=== PATIENT | female | born 1950 | race Caucasian/White ===

== ENCOUNTER 2016-08-17 18:03 | Inpatient (IN) | payer MEDICARE ==
--- NOTE | ~2016-08-17 | HP ---
History And Physical [place] [address] [facility] [place]. [address] NAME: ROBBIE FELIZ : 52 STATUS : ADM IN [facility]#: [id number] AGE: 66 ADM/REG DATE : 08/17/16 MR#: [id number] REPORT SERV DATE: 08/18/16 DICTATED BY: RIA HANSON DATE: 08/17/16 REPORT STATUS : Draft TRANSCRIBED BY: MODL DATE: 08/17/16 DATE OF ADMISSION: 08/17/2016 TIME: 1830 hours. Seen in ER bed 8. HISTORY OF PRESENT ILLNESS: The patient is a 66-year-old white diabetic female who underwent liver biopsy earlier today at [facility], [place]. Apparently, she was felt to have a subcapsular hematoma develop. She was hypotensive and received some IV fluids there, and when her pressure did not improve, she was sent to [place]. The patient told me she has 3 to 4 core biopsies done. Imaging here reveals evidence of possible hematoma to liver, some free blood into the gutter. A surgeon has been called. The patient has a history of cyst. PAST MEDICAL HISTORY: Significant for pyr-knnzygx-fybgtfcoz diabetes, history of cholecystectomy, appendectomy, past C-sections, shoulder surgery. Chronic kidney disease for which she is followed by Nephrology, Dr. Barrios, also history of depression in the past, type 2 diabetes as mentioned. No history of stroke, seizure, or convulsion. She does have a history of hypothyroidism. ALLERGIES: TO PENICILLIN, CODEINE, BREAK OUT IN A RASH. REVIEW OF SYSTEMS: GI: Noted. : Negative. CARDIAC: Negative according to the patient. MUSCULOSKELETAL: Shoulder surgery. ENDOCRINE: Hypothyroidism, diabetes. ONCOLOGY: Negative. All other systems reviewed negative. No history of seizures or convulsions. SOCIAL HISTORY: Quit smoking 17 months ago. Smoked [id number]-vxno prior. MEDICATION: List as noted. She takes the following: Amitriptyline 50 one tablet p.o. daily, atorvastatin 40 mg one tablet daily, Co Q10 one tablet daily, fish oil 360 200 mg two capsules by mouth daily, glipizide 5 mg one tablet p.o. twice a day, Januvia 100 mg tablets p.o. daily, lisinopril 10 mg p.o. daily, multivitamin one daily, Singulair 10, Ursodiol for biliary cirrhosis 300 mg p.o. daily, aspirin 81 mg p.o. daily, B complex one tablet p.o. daily, escitalopram 5 mg p.o. daily, Neurontin 600 mg p.o. daily, hydrochlorothiazide 25 mg p.o. daily, levothyroxine 150 mcg p.o. daily, magnesium tablet one daily, omeprazole capsule daily, Uloric 40 mg p.o. daily, vitamin C 1000 mg tablet, Zyrtec 10 mg p.o. daily. PHYSICAL EXAMINATION: VITAL SIGNS: Currently blood pressure is 75/60, pulse is 83 to 90. History And Physical [address] [address] NAME: ROBBIE FELIZ : 52 STATUS : ADM IN [facility]#: [id number] AGE: 66 ADM/REG DATE : 08/17/16 MR#: [id number] REPORT SERV DATE: 08/18/16 DICTATED BY: RIA HANSON DATE: 08/17/16 REPORT STATUS : Draft TRANSCRIBED BY: EMERSON DATE: 08/17/16 GENERAL: The patient is a pale-appearing female, appearing her stated age. HEENT: Head is normocephalic. Sclerae and conjunctivae are clear. Oral mucosa appear dry. NECK: Large. Thyroid not palpable. CHEST: Clear to auscultation and percussion. No wheezing or rhonchi. CARDIAC: S1 and S2. No murmurs or gallops. ABDOMEN: Tender to palpation especially, subxiphoid into the right. Bowel sounds present, but diminished. EXTREMITIES: No cyanosis, edema. No clubbing. Pulses palpable. NEUROLOGIC: Cranial nerves 2 through 12 are intact. Deep tendon reflexes normal. The patient does have a history of peripheral neuropathy of the feet. EKG may show an early right bundle. LABORATORY DATA: Shows an H and H of 9.5 and 29.7, white count 11,000, platelet 305,000. Sodium 144, potassium 5.6, chloride 113, CO2 of 24, BUN 47, creatinine 2.73 which is up from 1.85 previous measurement, glucose 168. CT scan as noted. IMPRESSION: Probable hepatic hematoma being typed and crossed. We will get access, surgeon to see and interventional Radiology is aware. ELANA/EMERSON Ria Hanson M.D. / [id number] CC: Ria Hanson M.D. [facility]
--- NOTE | ~2016-08-17 | CN ---
Consultation Report [address] [place]. [address] NAME: ROBBIE FELIZ : 52 STATUS : ADM IN PAT#: [id number] AGE: 66 ADM/REG DATE : 08/17/16 MR#: [id number] REPORT SERV DATE: 08/18/16 DICTATED BY: RIA GALDAMEZ III DATE: 08/17/16 REPORT STATUS : Draft TRANSCRIBED BY: MODRamona DATE: 08/17/16 DATE OF CONSULTATION: 08/17/2016 REASON FOR CONSULT: 1. Hepatic hematoma with hypotension. 2. Recommendation regarding surgical management. HISTORY OF PRESENT ILLNESS: I am asked to see this 66-year-old female emergently for the above reasons. The patient underwent a CT-directed liver biopsy earlier today at an outside institution. Following which, she developed progressive abdominal pain and weakness. She presented to the emergency room and was found to have on CT scan a large hepatic hematoma. The patient has been somewhat hypertensive, but otherwise stable since admission. She complains of right upper quadrant pain and right shoulder pain. PAST MEDICAL HISTORY: 1. History of diabetes mellitus. 2. History of apparent chronic renal insufficiency. 3. History of hypothyroidism. 4. Obesity. ALLERGIES: CODEINE, AMOXICILLIN, AND PENICILLIN. MEDICATIONS: Elavil, Lipitor, vitamins, Glucotrol, Januvia, Prinivil, Singulair, Actigall, Zyrtec, aspirin, Lexapro, hydrochlorothiazide, levothyroxine, magnesium oxide, Prilosec, Uloric, vitamin C. REVIEW OF SYSTEMS: The patient has apparent history of cirrhosis or liver disease. She has a history of hypertension and anxiety. SOCIAL HISTORY: The patient is . PHYSICAL EXAMINATION: GENERAL: Reveals an obese female, in no acute distress. She is alert and oriented x3. VITAL SIGNS: Blood pressure 97/42, temperature 36.6, pulse 82. HEENT: Unremarkable. NEUROLOGIC: Cranial nerves II through XII are normal. LUNGS: Clear. CARDIAC: Normal. ABDOMEN: Obese and soft with some right upper quadrant tenderness with no guarding. The remainder of the abdomen is soft and nontender. Consultation Report [address] [place]. [address] NAME: ROBBIE FELIZ : 52 STATUS : ADM IN PAT#: [id number] AGE: 66 ADM/REG DATE : 08/17/16 MR#: [id number] REPORT SERV DATE: 08/18/16 DICTATED BY: RIA GALDAMEZ III DATE: 08/17/16 REPORT STATUS : Draft TRANSCRIBED BY: EMERSON DATE: 08/17/16 LABORATORY DATA: Hematocrit is 24.5, it has decreased from 29.7 since 4 o'clock this afternoon, but the patient has had 2 units of IV fluids in transfusion. Her INR is normal at 1.1. Her platelet count is normal. Electrolytes are remarkable for creatinine of 2.73. Approximately two years ago, her creatinine was elevated at 1.85. Glucose is 168. Albumin is 3.6. Liver enzymes are remarkable for an alkaline phosphatase of 221. CT scan of the abdomen and pelvis, which I reviewed shows a 3 cm subcapsular hepatic hematoma. ASSESSMENT: A 66-year-old female with: 1. Subcapsular right-sided hepatic hematoma after a liver biopsy. 2. Hypotension secondary to subcapsular right-sided hepatic hematoma. 3. Obesity. 4. Hypertension. 5. Hypothyroidism. 6. Chronic renal insufficiency. 7. Diabetes mellitus. PLAN: The patient is stable at this time and has responded to IV fluids. She has been admitted to Intensive Care Unit and will receive 2 units of blood in transfusion. I have recommended serial hematocrits and close monitoring. Generally, I have explained to the patient that this type of bleeding will stop spontaneously without surgical intervention. However, if she has evidence for continued bleeding, then surgical intervention will be required. I have discussed this with the patient and her family. The fact that this is a serious situation with life-threatening potential has been explained. The patient and family had questions, which were answered. They understand and agreed with this plan. We will follow the patient with you. RHNeelam/EMERSON Ria Galdamez III, M.D. / [id number] CC: Carline Camara CHELSEY
--- NOTE | ~2016-08-17 | DS ---
Discharge Summary [facility] [address] [place]. [address] NAME: ROBBIE FELIZ : 52 STATUS : DIS IN PAT#: [id number] AGE: 66 ADM/REG DATE : 08/17/16 MR#: [id number] REPORT SERV DATE: 08/24/16 DICTATED BY: HSAD BURT DATE: 08/23/16 REPORT STATUS : Draft TRANSCRIBED BY: MODL DATE: 08/23/16 ADMISSION DATE: 08/17/2016 DISCHARGE DATE: 08/23/2016 DISPOSITION: Discharged to home. CONDITION ON DISCHARGE: Stable. ADVISE ON DISCHARGE: To follow up with Nephrology, Dr. Barrios within the next three to four weeks as scheduled and also follow up with her GI specialist for biliary cirrhosis as scheduled within the next few weeks. DISCHARGE DIAGNOSES: 1. Right upper quadrant pain and hematoma after the patient had liver biopsy done. So, this is likely liver biopsy related, but this is resolving at this time, and pain has resolved and hemoglobin and hematocrit have remained stable in this patient. Hence, she is being discharged. 2. 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 3. Chronic kidney disease with baseline creatinine 1.8 to 2.2. So, the patient has chronic kidney disease, stage IV and this is stable. 4. Xnq-ugukofp-bcoxepvlt diabetes mellitus with uncontrolled blood glucose levels and noncompliance with diet with A1c 10.5 range. 5. Diabetic neuropathy. 6. Dyslipidemia. 7. Hypothyroidism. 8. History of proteinuria. 9. History of asthma and history of gout, which are all stable at this time. BRIEF HOSPITAL COURSE: The patient is a 66-year-old white female patient who was admitted with signs and symptoms as outlined in history and physical exam. For a brief period, the patient was in the ICU because she was hypotensive and had a large hematoma in the right upper quadrant and significant pain in the right upper quadrant postprocedure. The patient had undergone a liver biopsy as the patient has suspected biliary cirrhosis of the liver. After she was given blood transfusion and watched in the ICU and stabilized, the patient was sent to the floor. When I took over care of the patient on the regular medical floor, the patient continued to have mild right upper quadrant pain. The patient's numbers had already stabilized and she had no more bleeding with a normal hemoglobin and hematocrit. The patient's symptoms were controlled with medications and after she was given supportive care, her symptoms significantly improved. On the day of discharge, the patient continues to be slightly anxious and nauseated and requests Ativan. So, the patient will be given 0.5 mg of Ativan right now and if this calms her nausea down, she will be sent home as she is requesting. Discharge Summary [place] [address] [place]. [address] NAME: ROBBIE FELIZ : 52 STATUS : DIS IN PAT#: [id number] AGE: 66 ADM/REG DATE : 08/17/16 MR#: [id number] REPORT SERV DATE: 08/24/16 DICTATED BY: SHAD BURT DATE: 08/23/16 REPORT STATUS : Draft TRANSCRIBED BY: EMERSON DATE: 08/23/16 The patient otherwise is stable and is advised to follow up with physicians as mentioned above. There have been the following changes that have been made to her medications. Given her kidney function at this time, we have stopped her lisinopril temporarily, HCTZ temporarily, Januvia temporarily. Instead I have added Norvasc 5 mg for blood pressure control. We will continue Coreg that has been suggested and advised while she has been in the hospital at 6.25 mg p.o. b.i.d., Colace 100 mg p.o. b.i.d., folic acid 1 mg p.o. daily. For the right upper quadrant pain, I have given her a prescription for tramadol, 50 mg p.o. b.i.d. p.r.n. and Compazine 10 mg p.o. t.i.d. p.r.n. for nausea which she requests. The patient will follow up with Dr. Barrios and it is up to her materials scientist to restart her lisinopril given the history of significant proteinuria. However, we may want to wait for her creatinine to stabilize and her GFR to stabilize also at this time. Otherwise, her rest of the medications will definitely be renewed and the patient will be advised to continue the following medications and this will include Elavil 50 mg p.o. at bedtime, aspirin 81 mg once a day, Lipitor once a day, Zyrtec, Lexapro, Uloric 40 mg once a day, Neurontin, Glucotrol, levothyroxine, Singulair 10 mg once a day, Prilosec once a day, Actigall. The patient will also hold her Januvia as mentioned above given her renal function. The patient has also been advised to follow up with PCP within the next one to two weeks to regulate her diabetes better. She may need insulin within the next short period for better control of her diabetes, if the PCP decides that the glipizide alone is not continuing to control her diabetes at this time. I have the following most recent lab reports on this patient. Her CBC on 08/23/2016 shows WBC of 9.2, hemoglobin 9.3, hematocrit 28.3 which are stable, platelet count of 333. Renal function profile shows a sodium 142, potassium 3.4 which is being corrected, chloride 107, BUN is 58, and creatinine is 2.21. So, it looks like she is pretty much back at her baseline creatinine. Her creatinine however, was high and it was as high as 3.07 and climbed up to almost 4.57 on 08/19/2016, but the 4.57 creatinine nicely came down to 2.21 which is her baseline on 08/23/2016. Also her hemoglobin and hematocrit upon admission was as low as 7.7 on 08/19/2016 and this improved after 2 units of blood transfusion and has stabilized at 9.3. The patient also had a CT scan of the abdomen and pelvis done at this time, and this showed that the patient had the following findings. Actually her CT scan was repeated on 08/17/2016 and 08/18/2016 and this shows that the patient had a subtle subcapsular hematoma, which has stabilized and no GI or obstruction, mild cardiomegaly, and slight increase in bibasilar atelectasis compared to the CT scan that was done on 08/17/2016 that did show a subcapsular hematoma on the right side. Hence, the patient is being sent home after being stabilized with advise as above and I have spent about 40 minutes in coordinating discharge care of this patient including ykhx-xf-fzrc encounter and summarizing this discharge. Discharge Summary [facility] [address] [place] [address] NAME: ROBBIE FELIZ : 52 STATUS : DIS IN PAT#: [id number] AGE: 66 ADM/REG DATE : 08/17/16 MR#: [id number] REPORT SERV DATE: 08/24/16 DICTATED BY: SHAD BURT DATE: 08/23/16 REPORT STATUS : Draft TRANSCRIBED BY: MODL DATE: 08/23/16 RRA/EMERSON Shad Burt M.D. / [id number] CC: Shad Burt M.D. [facility]
--- NOTE | ~2016-08-17 | CN ---
Consultation Report [facility] [address] [place]. [address] NAME: ROBBIE FELIZ : 52 STATUS : ADM IN PAT#: [id number] AGE: 66 ADM/REG DATE : 08/17/16 MR#: [id number] REPORT SERV DATE: 08/19/16 DICTATED BY: JAXSON PARRY DATE: 08/18/16 REPORT STATUS : Draft TRANSCRIBED BY: MODL DATE: 08/18/16 DATE OF CONSULTATION: 08/18/2016 REASON FOR CONSULT: Chronic kidney disease with acute kidney injury. HISTORY OF PRESENT ILLNESS: Ms. Feliz is a very pleasant 66-year-old white female, followed in the office of [facility] by Dr. Magaly Barrios. Reviewing available records shows that her baseline creatinine is 1.8 to 2.2. In June 2016, her creatinine was 2.2. At which time, her urine protein-creatinine ratio was 2.32. She is chronically maintained on ROCK inhibitor as an outpatient. She is postop day one outpatient renal biopsy for primary biliary cirrhosis. She developed bleed after the procedure and was sent by EMS to the ER here at [facility] yesterday, where she was found to be profoundly hypotensive. Initial systolic blood pressures were in the 70s. Creatinine was 2.7 on presentation. She was watched overnight in the CCU. Today, her creatinine is 3.1 with potassium 5.5, bicarbonate 19. She is on 1 mcg of Levophed and received 1 unit of packed red blood cells since admission. PAST MEDICAL HISTORY: 1. Chronic kidney disease, baseline creatinine 1.8-2.2. 2. Xrq-pesubod-qfncxcsqy diabetes mellitus with A1c 10.5% and neuropathy. 3. Hyperlipidemia. 4. Hypothyroid. 5. Proteinuria, on ROCK inhibitor 2.32 g. 6. Asthma. 7. Gout. 8. Primary biliary cirrhosis. MEDICATIONS ON ADMISSION: Elavil 50 mg q.h.s., vitamin C, aspirin, Lipitor, Super B Complex, Zyrtec, CoQ10, Trulicity, Lexapro, Uloric, Neurontin, Glucotrol, hydrochlorothiazide 25 mg daily, levothyroxine, lisinopril 10 mg b.i.d., Singulair 10 mg daily, fish oil, Prilosec, Januvia, and Actigall. FAMILY HISTORY: No ESRD. 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 Lives in [place] with supportive family. and nonsmoker. REVIEW OF SYSTEMS: Significant for events prompting admission after liver biopsy yesterday. She takes Aleve once or twice a week. PHYSICAL EXAMINATION: VITAL SIGNS: Temperature 98.4, pulse 93, respirations 19, blood pressure 104/59, and 97% saturation on 4 L per nasal cannula, 1339 mL of intake with 220 mL of output. GENERAL: She is a very pleasant white female, awake, alert, oriented, and cooperative with Consultation Report [address] [place]. [address] NAME: ROBBIE FELIZ : 52 STATUS : ADM IN [facility]#: [id number] AGE: 66 ADM/REG DATE : 08/17/16 MR#: [id number] REPORT SERV DATE: 08/19/16 DICTATED BY: JAXSON PARRY DATE: 08/18/16 REPORT STATUS : Draft TRANSCRIBED BY: EMERSON DATE: 08/18/16 the exam. She has bilateral rhonchi without dyspnea or tachypnea. CARDIAC: Heart rate, regular rate and rhythm. No murmur, rub, or gallop. ABDOMEN: Obese, soft, nondistended, tender to palpation in the right upper quadrant without rebound, guarding, or peritoneal signs. EXTREMITIES: With 1+ pitting edema at the ankles. : Deferred. Joseph catheter has been removed. She has a right upper arm PICC line. SKIN: Shows no rash. Mood and affect are appropriate. MUSCULOSKELETAL: Shows no active tenosynovitis or gout. NEURO: Grossly nonfocal. HEENT: Sclerae without icterus. Conjunctivae not injected. Oropharynx is clear. Mucous membranes are dry without JVD. IMAGING: CT scan without contrast confirmed a subcapsular hematoma. LABORATORY DATA: Sodium 142, potassium 5.5, bicarbonate 19, anion gap 10, BUN 50, creatinine 3.1, GFR 15 mL/minute, calcium 7.4, magnesium 1.9, phosphorus 5.3, albumin 2.6. White count 20.6 thousand, hemoglobin 9.3, platelets 263,000. ASSESSMENT AND PLAN: Ms. Feliz has chronic kidney disease with acute kidney injury, leukocytosis, non-anion gap metabolic acidosis, hyperkalemia, hypoalbuminemia, hypotension, postop day one liver biopsy with subcapsular hematoma. Her other medical history is as outlined above. I suspect she has developed acute kidney injury related to acute tubular necrosis from renal hypoperfusion due to low blood pressure with acute blood loss anemia after liver biopsy yesterday. Hold ROCK inhibitor. Dose albumin. Gently diurese and reduce the IV fluid intake rate. Watch labs. Supportive care. Family updated. Hopefully, dialysis can be avoided at this time. We will follow closely with you. Appreciate consult. NC/MODL Jaxson Parry M.D. / [id number] CC: Carline Camara M.D.
[2016-08-17 16:27] LABS: BASOPHILS 0.4 %; BASOPHILS ABSOLUTE 0.04 10/3/uL (0.0-0.16); EOSINOPHILS 0.5 %; EOSINOPHILS ABSOLUTE 0.06 10/3/uL (0.0-0.53); ER CBC TAT 0 Hrs 07 Mins; IMMATURE GRANULOCYTES 0.2 %; IMMATURE GRANULOCYTES ABSOLUTE 0.02 10/3/uL (0.0-0.11); LYMPHOCYTES 19.4 %; LYMPHOCYTES ABSOLUTE 2.12 10/3/uL (0.67-4.30); MEAN CORPUSCULAR HEMOGLOB 29.1 pg (26.0-34.0); MEAN CORPUSCULAR VOLUME 91.1 fL (80-100); MEAN PLATELET VOLUME 10.4 fL (9.2-13.0); MONOCYTES 6.4 %; NEUTROPHILS 73.1 %; NEUTROPHILS ABSOLUTE 8.01 10/3/uL (2.02-8.40); PLATELET COUNT 305 10/3/uL (150-400); RBC DISTRIBUTION WIDTH 13.8 % (12.0-16.0)
[2016-08-17 16:28] LABS: HEMATOCRIT 29.7 % (36.0-48.0); HEMOGLOBIN 9.5 g/dL (12.0-16.0); MANUAL DIFF NO %; RED CELL COUNT 3.26 10/6/uL (4.0-5.6)
[2016-08-17 16:34] LABS: INTERNATIONAL NORMAL RATI 1.1 UNITS (-); PARTIAL THROMBO TIME 25.8 SEC (22.5-37.2); PROTIME (NOT ORD) 13.7 SEC (12.0-14.5)
[2016-08-17 16:39] LABS: A/G RATIO 0.7 (0.7-1.9); ALBUMIN 2.6 G/DL (3.5-5.0); ALKALINE PHOSPHATASE 221 U/L (45-117); BUN (BLOOD UREA NITROGEN) 47 MG/DL (6-23); CALCIUM, SERUM 7.6 MG/DL (8.5-10.4); CHLORIDE, SERUM 113 MMOL/L (96-112); CO2 (CARBON DIOXIDE) 24 MMOL/L (24-34); CREATININE 2.73 MG/DL (0.55-1.02); GFR AFRICAN AMERICAN 20 ML/MIN (>=60); GFR NON AFRICAN AMERICAN 18 ML/MIN (>=60); GLUCOSE, SERUM 168 MG/DL (60-99); POTASSIUM, SERUM 5.6 MMOL/L (3.5-5.3); SGOT(AST) 46 U/L (5-40); SGPT(ALT) 38 U/L (5-65); SODIUM, SERUM 144 MMOL/L (135-148); TOTAL BILIRUBIN 0.5 MG/DL (0-1.2); TOTAL PROTEIN 6.6 G/DL (6.0-8.5)
[2016-08-17] MEDS ORDERED: AMIT50 PO (18:58)
[2016-08-17] MEDS ORDERED: FISH OIL1200 MG PO (18:58)
[2016-08-17] MEDS ORDERED: CO Q-10100 MG PO (18:58)
[2016-08-17] MEDS ORDERED: LIPITOR40 PO (18:58)
[2016-08-17] MEDS ORDERED: GLUCOTROL5 PO (18:59)
[2016-08-17] MEDS ORDERED: JANUVIA50 PO (18:59)
[2016-08-17] MEDS ORDERED: PRIN10 PO (18:59)
[2016-08-17] MEDS ORDERED: SINGULAIR1 PO (19:00)
[2016-08-17] MEDS ORDERED: ACT300 PO (19:00)
[2016-08-17] MEDS ORDERED: ASAB PO (19:00)
[2016-08-17] MEDS ORDERED: MULTIVITAMI1 PO (19:00)
[2016-08-17] MEDS ORDERED: ZYRTEC ALLGY10 MG PO (19:00)
[2016-08-17] MEDS ORDERED: LEXAPRO5 MG PO (19:01)
[2016-08-17] MEDS ORDERED: SUPER B COMP PO (19:01)
[2016-08-17] MEDS ORDERED: HYDROCHLOROT25 MG PO (19:01)
[2016-08-17] MEDS ORDERED: NEUR600 PO (19:01)
[2016-08-17] MEDS ORDERED: PRILOSEC40 MG PO (19:02)
[2016-08-17] MEDS ORDERED: LEVOTHYROXIN150 MCG PO (19:02)
[2016-08-17] MEDS ORDERED: MAGOX4 PO (19:02)
[2016-08-17] MEDS ORDERED: ULORIC40 MG PO (19:02)
[2016-08-17] MEDS ORDERED: TRULICITY0.75 MG/0. SQ (19:03)
[2016-08-17] MEDS ORDERED: VITC500 PO (19:03)
[2016-08-17 20:10] LABS: BASOPHILS 0.3 %; BASOPHILS ABSOLUTE 0.03 10/3/uL (0.0-0.16); EOSINOPHILS 0.5 %; EOSINOPHILS ABSOLUTE 0.05 10/3/uL (0.0-0.53); ER CBC TAT 0 Hrs 07 Mins; HEMOGLOBIN 7.6 g/dL (12.0-16.0); IMMATURE GRANULOCYTES 0.2 %; IMMATURE GRANULOCYTES ABSOLUTE 0.02 10/3/uL (0.0-0.11); LYMPHOCYTES 21.1 %; MEAN CORPUSCULAR HEMOGLOB 27.9 pg (26.0-34.0); MEAN CORPUSCULAR VOLUME 90.1 fL (80-100); MEAN PLATELET VOLUME 9.7 fL (9.2-13.0); MONOCYTES 8.3 %; MONOCYTES ABSOLUTE 0.82 10/3/uL (0.21-1.20); NEUTROPHILS 69.6 %; NEUTROPHILS ABSOLUTE 6.91 10/3/uL (2.02-8.40); PLATELET COUNT 262 10/3/uL (150-400); RBC DISTRIBUTION WIDTH 14.3 % (12.0-16.0); RED CELL COUNT 2.72 10/6/uL (4.0-5.6); WHITE BLOOD CELLS 9.9 10/3/uL (4.5-10.5)
[2016-08-17 20:11] LABS: HEMATOCRIT 24.5 % (36.0-48.0); MANUAL DIFF NO %
[2016-08-17 21:51] LABS: BE (BASE EXCESS) -10.1 MEQ/L (0 +/- 2.5); CARBOXYHEMOGLOBIN 0.1 % (0-3); DEVICE NC; HCO3 (ACTUAL BICARBONATE) 16.3 MEQ/L (23-27); HEMOBLOGIN CONTENT 9.2 G/DL (12-16); INSTRUMENT SERIAL # 35151; METHEMOGLOBIN 0.5 % (0-3); O2 CONTENT 12.5 VOL% (18-24); OPERATOR ID 13861; PCO2 (CO2 TENSION) 38 MMHG (35-45); PO2 (O2 TENSION) 92 MMHG (79-93); SAMPLE Arterial; pH 7.25 (7.37-7.43)
[2016-08-17 23:02] LABS: BUN (BLOOD UREA NITROGEN) 46 MG/DL (6-23); CHLORIDE, SERUM 114 MMOL/L (96-112); GFR AFRICAN AMERICAN 20 ML/MIN (>=60); GFR NON AFRICAN AMERICAN 17 ML/MIN (>=60); GLUCOSE, SERUM 148 MG/DL (60-99); POTASSIUM, SERUM 5.7 MMOL/L (3.5-5.3); SODIUM, SERUM 143 MMOL/L (135-148)
[2016-08-17 23:03] LABS: CALCIUM, SERUM 7.2 MG/DL (8.5-10.4); CO2 (CARBON DIOXIDE) 19 MMOL/L (24-34)
[2016-08-18 02:18] LABS: BASOPHILS 0.3 %; BASOPHILS ABSOLUTE 0.05 10/3/uL (0.0-0.16); EOSINOPHILS 0.4 %; EOSINOPHILS ABSOLUTE 0.07 10/3/uL (0.0-0.53); HEMATOCRIT 31.5 % (36.0-48.0); IMMATURE GRANULOCYTES 0.3 %; IMMATURE GRANULOCYTES ABSOLUTE 0.06 10/3/uL (0.0-0.11); LYMPHOCYTES 16.3 %; MEAN CORPUS HGB CONC 31.7 g/dL (32.0-36.0); MEAN CORPUSCULAR HEMOGLOB 29.4 pg (26.0-34.0); MEAN CORPUSCULAR VOLUME 92.6 fL (80-100); MEAN PLATELET VOLUME 9.7 fL (9.2-13.0); MONOCYTES 7.9 %; MONOCYTES ABSOLUTE 1.51 10/3/uL (0.21-1.20); NEUTROPHILS 74.8 %; NEUTROPHILS ABSOLUTE 14.27 10/3/uL (2.02-8.40); PLATELET COUNT 309 10/3/uL (150-400); RBC DISTRIBUTION WIDTH 14.2 % (12.0-16.0); WHITE BLOOD CELLS 19.1 10/3/uL (4.5-10.5)
[2016-08-18 02:19] LABS: MANUAL DIFF NO %
[2016-08-18 04:46] LABS: BUN (BLOOD UREA NITROGEN) 50 MG/DL (6-23); CALCIUM, SERUM 7.4 MG/DL (8.5-10.4); CHLORIDE, SERUM 113 MMOL/L (96-112); CO2 (CARBON DIOXIDE) 19 MMOL/L (24-34); CREATININE 3.07 MG/DL (0.55-1.02); GFR AFRICAN AMERICAN 18 ML/MIN (>=60); GFR NON AFRICAN AMERICAN 15 ML/MIN (>=60); GLUCOSE, SERUM 168 MG/DL (60-99); POTASSIUM, SERUM 5.5 MMOL/L (3.5-5.3); SODIUM, SERUM 142 MMOL/L (135-148)
[2016-08-18 05:05] LABS: PHOSPHORUS, SERUM 5.3 MG/DL (2.5-4.5)
[2016-08-18 08:39] LABS: HEMATOCRIT 29.7 % (36.0-48.0); HEMOGLOBIN 9.3 g/dL (12.0-16.0); MEAN CORPUS HGB CONC 31.3 g/dL (32.0-36.0); MEAN CORPUSCULAR VOLUME 92.5 fL (80-100); MEAN PLATELET VOLUME 10.2 fL (9.2-13.0); PLATELET COUNT 263 10/3/uL (150-400); RBC DISTRIBUTION WIDTH 14.4 % (12.0-16.0); RED CELL COUNT 3.21 10/6/uL (4.0-5.6); WHITE BLOOD CELLS 20.6 10/3/uL (4.5-10.5)
[2016-08-18 08:40] LABS: MANUAL DIFF YES %
[2016-08-18 09:46] LABS: BAND NEUTROPHILS 16 %; EOSINOPHILS 1 %; EOSINOPHILS ABSOLUTE (CALC) 0.21 10/3/uL (0.0-0.53); IMMATURE GRANS ABSOLUTE (CALC) 0.21 10/3/uL (0.0-0.11); LYMPHOCYTES 12 %; LYMPHOCYTES ABSOLUTE (CALC) 2.47 10/3/uL (0.67-4.30); METAMYELOCYTES 1 %; MONOCYTES 7 %; MONOCYTES ABSOLUTE (CALC) 1.44 10/3/uL (0.21-1.20); NEUTROPHILS ABSOLUTE (CALC) 16.27 10/3/uL (2.02-8.40); PLATELET ESTIMATE ADQ (ADEQUATE); RBC MORPHOLOGY NORM (NORMAL); SEGMENTED NEUTROPHIL (0) 63 %; TOTAL NUCLEATED CELLS 100; TOXIC GRANULATION SLT
[2016-08-18 10:43] LABS: BASOPHILS 0.2 %; BASOPHILS ABSOLUTE 0.03 10/3/uL (0.0-0.16); EOSINOPHILS 0.3 %; EOSINOPHILS ABSOLUTE 0.05 10/3/uL (0.0-0.53); HEMATOCRIT 29.1 % (36.0-48.0); HEMOGLOBIN 9.2 g/dL (12.0-16.0); IMMATURE GRANULOCYTES 0.3 %; IMMATURE GRANULOCYTES ABSOLUTE 0.05 10/3/uL (0.0-0.11); LYMPHOCYTES 15.4 %; LYMPHOCYTES ABSOLUTE 2.68 10/3/uL (0.67-4.30); MEAN CORPUS HGB CONC 31.6 g/dL (32.0-36.0); MEAN CORPUSCULAR HEMOGLOB 29.6 pg (26.0-34.0); MEAN CORPUSCULAR VOLUME 93.6 fL (80-100); MEAN PLATELET VOLUME 9.9 fL (9.2-13.0); MONOCYTES 8.6 %; MONOCYTES ABSOLUTE 1.49 10/3/uL (0.21-1.20); NEUTROPHILS 75.2 %; NEUTROPHILS ABSOLUTE 13.11 10/3/uL (2.02-8.40); PLATELET COUNT 270 10/3/uL (150-400); RBC DISTRIBUTION WIDTH 14.6 % (12.0-16.0); RED CELL COUNT 3.11 10/6/uL (4.0-5.6); WHITE BLOOD CELLS 17.4 10/3/uL (4.5-10.5)
[2016-08-18 10:45] LABS: MANUAL DIFF NO %
[2016-08-18 15:58] LABS: BASOPHILS 0.2 %; BASOPHILS ABSOLUTE 0.02 10/3/uL (0.0-0.16); EOSINOPHILS ABSOLUTE 0.11 10/3/uL (0.0-0.53); HEMATOCRIT 28.1 % (36.0-48.0); HEMOGLOBIN 8.8 g/dL (12.0-16.0); IMMATURE GRANULOCYTES 0.4 %; IMMATURE GRANULOCYTES ABSOLUTE 0.04 10/3/uL (0.0-0.11); LYMPHOCYTES 22.2 %; LYMPHOCYTES ABSOLUTE 2.49 10/3/uL (0.67-4.30); MEAN CORPUS HGB CONC 31.3 g/dL (32.0-36.0); MEAN CORPUSCULAR HEMOGLOB 29.4 pg (26.0-34.0); MEAN PLATELET VOLUME 9.7 fL (9.2-13.0); MONOCYTES 10.7 %; NEUTROPHILS 65.5 %; NEUTROPHILS ABSOLUTE 7.35 10/3/uL (2.02-8.40); PLATELET COUNT 213 10/3/uL (150-400); RBC DISTRIBUTION WIDTH 14.6 % (12.0-16.0); RED CELL COUNT 2.99 10/6/uL (4.0-5.6); WHITE BLOOD CELLS 11.2 10/3/uL (4.5-10.5)
[2016-08-18 16:02] LABS: ALBUMIN 3.1 G/DL (3.5-5.0); BUN (BLOOD UREA NITROGEN) 54 MG/DL (6-23); CALCIUM, SERUM 7.3 MG/DL (8.5-10.4); CHLORIDE, SERUM 112 MMOL/L (96-112); CO2 (CARBON DIOXIDE) 21 MMOL/L (24-34); CREATININE 4.03 MG/DL (0.55-1.02); GFR AFRICAN AMERICAN 13 ML/MIN (>=60); GFR NON AFRICAN AMERICAN 11 ML/MIN (>=60); GLUCOSE, SERUM 111 MG/DL (60-99); PHOSPHORUS, SERUM 5.8 MG/DL (2.5-4.5); POTASSIUM, SERUM 4.8 MMOL/L (3.5-5.3); SODIUM, SERUM 144 MMOL/L (135-148)
[2016-08-18 16:16] LABS: MANUAL DIFF NO %
[2016-08-18 19:54] LABS: BASOPHILS 0.2 %; BASOPHILS ABSOLUTE 0.02 10/3/uL (0.0-0.16); EOSINOPHILS ABSOLUTE 0.13 10/3/uL (0.0-0.53); HEMATOCRIT 27.5 % (36.0-48.0); HEMOGLOBIN 8.7 g/dL (12.0-16.0); IMMATURE GRANULOCYTES 0.5 %; IMMATURE GRANULOCYTES ABSOLUTE 0.06 10/3/uL (0.0-0.11); LYMPHOCYTES 18.4 %; LYMPHOCYTES ABSOLUTE 2.39 10/3/uL (0.67-4.30); MEAN CORPUS HGB CONC 31.6 g/dL (32.0-36.0); MEAN CORPUSCULAR HEMOGLOB 29.8 pg (26.0-34.0); MEAN CORPUSCULAR VOLUME 94.2 fL (80-100); MEAN PLATELET VOLUME 9.7 fL (9.2-13.0); MONOCYTES 12.2 %; MONOCYTES ABSOLUTE 1.58 10/3/uL (0.21-1.20); NEUTROPHILS 67.7 %; NEUTROPHILS ABSOLUTE 8.79 10/3/uL (2.02-8.40); PLATELET COUNT 204 10/3/uL (150-400); RBC DISTRIBUTION WIDTH 14.5 % (12.0-16.0); RED CELL COUNT 2.92 10/6/uL (4.0-5.6)
[2016-08-18 19:56] LABS: MANUAL DIFF NO %
[2016-08-18 23:23] LABS: BE (BASE EXCESS) -8.9 MEQ/L (0 +/- 2.5); CARBOXYHEMOGLOBIN 0.2 % (0-3); DEVICE NC; HCO3 (ACTUAL BICARBONATE) 19.6 MEQ/L (23-27); HEMOBLOGIN CONTENT 9.6 G/DL (12-16); INSTRUMENT SERIAL # 35151; METHEMOGLOBIN 0.5 % (0-3); OPERATOR ID 13861; PCO2 (CO2 TENSION) 56 MMHG (35-45); SAMPLE Arterial; pH 7.16 (7.37-7.43)
[2016-08-18 23:56] LABS: BASOPHILS 0.2 %; BASOPHILS ABSOLUTE 0.02 10/3/uL (0.0-0.16); EOSINOPHILS 0.4 %; EOSINOPHILS ABSOLUTE 0.05 10/3/uL (0.0-0.53); HEMATOCRIT 26.6 % (36.0-48.0); HEMOGLOBIN 8.4 g/dL (12.0-16.0); IMMATURE GRANULOCYTES 0.4 %; IMMATURE GRANULOCYTES ABSOLUTE 0.05 10/3/uL (0.0-0.11); LYMPHOCYTES 14.1 %; LYMPHOCYTES ABSOLUTE 1.69 10/3/uL (0.67-4.30); MEAN CORPUS HGB CONC 31.6 g/dL (32.0-36.0); MEAN CORPUSCULAR HEMOGLOB 29.3 pg (26.0-34.0); MEAN CORPUSCULAR VOLUME 92.7 fL (80-100); MEAN PLATELET VOLUME 9.7 fL (9.2-13.0); MONOCYTES 10.5 %; MONOCYTES ABSOLUTE 1.26 10/3/uL (0.21-1.20); NEUTROPHILS 74.4 %; NEUTROPHILS ABSOLUTE 8.94 10/3/uL (2.02-8.40); PLATELET COUNT 205 10/3/uL (150-400); RBC DISTRIBUTION WIDTH 14.8 % (12.0-16.0); RED CELL COUNT 2.87 10/6/uL (4.0-5.6)
[2016-08-18 23:57] LABS: MANUAL DIFF NO %
[2016-08-19 00:23] LABS: CALCIUM, SERUM 7.1 MG/DL (8.5-10.4); CHLORIDE, SERUM 110 MMOL/L (96-112); CO2 (CARBON DIOXIDE) 23 MMOL/L (24-34); CREATININE 4.45 MG/DL (0.55-1.02); GFR AFRICAN AMERICAN 11 ML/MIN (>=60); GFR NON AFRICAN AMERICAN 10 ML/MIN (>=60); PHOSPHORUS, SERUM 6.4 MG/DL (2.5-4.5); POTASSIUM, SERUM 5.2 MMOL/L (3.5-5.3); SODIUM, SERUM 143 MMOL/L (135-148)
[2016-08-19 00:32] LABS: BUN (BLOOD UREA NITROGEN) 58 MG/DL (6-23); GLUCOSE, SERUM 149 MG/DL (60-99)
[2016-08-19 00:59] LABS: BE (BASE EXCESS) -9.8 MEQ/L (0 +/- 2.5); BIPAP 15/5 cm.H2O; CARBOXYHEMOGLOBIN 0.1 % (0-3); HEMOBLOGIN CONTENT 9.2 G/DL (12-16); INSTRUMENT SERIAL # 35151; METHEMOGLOBIN 0.7 % (0-3); OPERATOR ID 13861; PCO2 (CO2 TENSION) 48 MMHG (35-45); SAMPLE Arterial; pH 7.19 (7.37-7.43)
[2016-08-19 05:05] LABS: BE (BASE EXCESS) -9.5 MEQ/L (0 +/- 2.5); BIPAP 18/5 cm.H2O; CARBOXYHEMOGLOBIN 1.4 % (0-3); HCO3 (ACTUAL BICARBONATE) 18.2 MEQ/L (23-27); HEMOBLOGIN CONTENT 8.1 G/DL (12-16); INSTRUMENT SERIAL # 8083; METHEMOGLOBIN 0.2 % (0-3); OPERATOR ID 13861; PCO2 (CO2 TENSION) 49 MMHG (35-45); PO2 (O2 TENSION) 89 MMHG (79-93); SAMPLE Arterial; pH 7.19 (7.37-7.43)
[2016-08-19 05:16] LABS: BUN (BLOOD UREA NITROGEN) 61 MG/DL (6-23); CALCIUM, SERUM 7.1 MG/DL (8.5-10.4); CHLORIDE, SERUM 114 MMOL/L (96-112); CO2 (CARBON DIOXIDE) 21 MMOL/L (24-34); CREATININE 4.57 MG/DL (0.55-1.02); GFR AFRICAN AMERICAN 11 ML/MIN (>=60); GFR NON AFRICAN AMERICAN 9 ML/MIN (>=60); GLUCOSE, SERUM 147 MG/DL (60-99); PHOSPHORUS, SERUM 5.9 MG/DL (2.5-4.5); POTASSIUM, SERUM 4.9 MMOL/L (3.5-5.3); SODIUM, SERUM 145 MMOL/L (135-148)
[2016-08-19 05:27] LABS: BASOPHILS 0.1 %; BASOPHILS ABSOLUTE 0.01 10/3/uL (0.0-0.16); EOSINOPHILS 0.3 %; EOSINOPHILS ABSOLUTE 0.03 10/3/uL (0.0-0.53); HEMATOCRIT 25.2 % (36.0-48.0); HEMOGLOBIN 7.7 g/dL (12.0-16.0); LYMPHOCYTES 15.7 %; MEAN CORPUS HGB CONC 30.6 g/dL (32.0-36.0); MEAN CORPUSCULAR HEMOGLOB 28.6 pg (26.0-34.0); MEAN CORPUSCULAR VOLUME 93.7 fL (80-100); MEAN PLATELET VOLUME 9.9 fL (9.2-13.0); MONOCYTES ABSOLUTE 1.12 10/3/uL (0.21-1.20); NEUTROPHILS 71.9 %; NEUTROPHILS ABSOLUTE 7.36 10/3/uL (2.02-8.40); PLATELET COUNT 181 10/3/uL (150-400); RBC DISTRIBUTION WIDTH 14.9 % (12.0-16.0); RED CELL COUNT 2.69 10/6/uL (4.0-5.6); WHITE BLOOD CELLS 10.2 10/3/uL (4.5-10.5)
[2016-08-19 05:29] LABS: MANUAL DIFF NO %
[2016-08-19 07:22] LABS: ALBUMIN 3.4 G/DL (3.5-5.0); ALKALINE PHOSPHATASE 217 U/L (45-117); DIRECT BILIRUBIN 0.3 MG/DL (0.0-0.4); INDIRECT BILIRUBIN(NOT ORDER) 0.6 MG/DL (0.1-0.9); SGOT(AST) 48 U/L (5-40); SGPT(ALT) 39 U/L (5-65); TOTAL BILIRUBIN 0.9 MG/DL (0-1.2)
[2016-08-19 09:31] LABS: BASOPHILS 0.2 %; BASOPHILS ABSOLUTE 0.02 10/3/uL (0.0-0.16); EOSINOPHILS 0.5 %; EOSINOPHILS ABSOLUTE 0.05 10/3/uL (0.0-0.53); HEMATOCRIT 24.1 % (36.0-48.0); HEMOGLOBIN 7.7 g/dL (12.0-16.0); IMMATURE GRANULOCYTES 0.5 %; IMMATURE GRANULOCYTES ABSOLUTE 0.05 10/3/uL (0.0-0.11); LYMPHOCYTES 16.2 %; LYMPHOCYTES ABSOLUTE 1.64 10/3/uL (0.67-4.30); MEAN CORPUSCULAR HEMOGLOB 29.5 pg (26.0-34.0); MEAN CORPUSCULAR VOLUME 92.3 fL (80-100); MEAN PLATELET VOLUME 9.8 fL (9.2-13.0); MONOCYTES 9.5 %; MONOCYTES ABSOLUTE 0.96 10/3/uL (0.21-1.20); NEUTROPHILS 73.1 %; NEUTROPHILS ABSOLUTE 7.39 10/3/uL (2.02-8.40); PLATELET COUNT 167 10/3/uL (150-400); RBC DISTRIBUTION WIDTH 14.8 % (12.0-16.0); RED CELL COUNT 2.61 10/6/uL (4.0-5.6); WHITE BLOOD CELLS 10.1 10/3/uL (4.5-10.5)
[2016-08-19 09:32] LABS: MANUAL DIFF NO %
[2016-08-19 12:16] LABS: ALLENS TEST Pos; BE (BASE EXCESS) -7.8 MEQ/L (0 +/- 2.5); BIPAP 18/5 cm.H2O; CARBOXYHEMOGLOBIN 0.3 % (0-3); HEMOBLOGIN CONTENT 8.5 G/DL (12-16); INSTRUMENT SERIAL # 35151; METHEMOGLOBIN 0.6 % (0-3); O2 CONTENT 11.4 VOL% (18-24); OPERATOR ID 32214; PCO2 (CO2 TENSION) 53 MMHG (35-45); PO2 (O2 TENSION) 85 MMHG (79-93); SAMPLE Arterial
[2016-08-19 16:02] LABS: HEMATOCRIT 24.3 % (36.0-48.0); HEMOGLOBIN 7.7 g/dL (12.0-16.0); MEAN CORPUS HGB CONC 31.7 g/dL (32.0-36.0); MEAN CORPUSCULAR HEMOGLOB 29.4 pg (26.0-34.0); MEAN CORPUSCULAR VOLUME 92.7 fL (80-100); MEAN PLATELET VOLUME 9.6 fL (9.2-13.0); PLATELET COUNT 175 10/3/uL (150-400); RBC DISTRIBUTION WIDTH 14.8 % (12.0-16.0); RED CELL COUNT 2.62 10/6/uL (4.0-5.6); WHITE BLOOD CELLS 10.5 10/3/uL (4.5-10.5)
[2016-08-19 16:03] LABS: MANUAL DIFF YES %
[2016-08-19 16:11] LABS: LYMPHOCYTES 12 %; MONOCYTES 9 %; SEGMENTED NEUTROPHIL (0) 79 %; TOTAL NUCLEATED CELLS 100
[2016-08-19 16:31] LABS: ANISOCYTOSIS 1+ (5-10/OIF) (0-5/OIF); POIKILOCYTOSIS 1+ (5-10/OIF) (0-5/OIF)
[2016-08-19 16:35] LABS: PLATELET ESTIMATE ADQ (ADEQUATE)
[2016-08-19 21:57] LABS: HEMATOCRIT 25.2 % (36.0-48.0); MEAN CORPUS HGB CONC 31.7 g/dL (32.0-36.0); MEAN CORPUSCULAR HEMOGLOB 29.3 pg (26.0-34.0); MEAN CORPUSCULAR VOLUME 92.3 fL (80-100); MEAN PLATELET VOLUME 10.2 fL (9.2-13.0); PLATELET COUNT 169 10/3/uL (150-400); RBC DISTRIBUTION WIDTH 14.8 % (12.0-16.0); RED CELL COUNT 2.73 10/6/uL (4.0-5.6)
[2016-08-19 21:58] LABS: MANUAL DIFF YES %
[2016-08-19 22:11] LABS: CK-MB 2.3 NG/ML; CPK 422 U/L (0-200); TROPONIN I 0.02 NG/ML (<0.05)
[2016-08-19 22:37] LABS: BASOPHILS 4 %; EOSINOPHILS 1 %; LYMPHOCYTES 13 %; MONOCYTES 4 %; NUCLEATED RED BLOOD CELLS 0 /100WBC (0); SEGMENTED NEUTROPHIL (0) 78 %; TOTAL NUCLEATED CELLS 100
[2016-08-19 22:38] LABS: PLATELET ESTIMATE ADQ (ADEQUATE); RBC MORPHOLOGY NORM (NORMAL)
[2016-08-20 04:00] LABS: CARBOXYHEMOGLOBIN 0.4 % (0-3); HCO3 (ACTUAL BICARBONATE) 21.2 MEQ/L (23-27); INSTRUMENT SERIAL # 35151; PCO2 (CO2 TENSION) 45 MMHG (35-45); PO2 (O2 TENSION) 79 MMHG (79-93); pH 7.29 (7.37-7.43)
[2016-08-20 04:01] LABS: ALLENS TEST Pos; DEVICE NC; HEMOBLOGIN CONTENT 7.5 G/DL (12-16); O2 CONTENT 9.9 VOL% (18-24); OPERATOR ID 13415; SAMPLE Arterial
[2016-08-20 05:36] LABS: BASOPHILS 0.1 %; BASOPHILS ABSOLUTE 0.01 10/3/uL (0.0-0.16); EOSINOPHILS 0.2 %; EOSINOPHILS ABSOLUTE 0.02 10/3/uL (0.0-0.53); HEMATOCRIT 23.4 % (36.0-48.0); HEMOGLOBIN 7.5 g/dL (12.0-16.0); IMMATURE GRANULOCYTES 0.2 %; IMMATURE GRANULOCYTES ABSOLUTE 0.02 10/3/uL (0.0-0.11); LYMPHOCYTES 13.3 %; LYMPHOCYTES ABSOLUTE 1.18 10/3/uL (0.67-4.30); MEAN CORPUS HGB CONC 32.1 g/dL (32.0-36.0); MEAN CORPUSCULAR HEMOGLOB 29.2 pg (26.0-34.0); MEAN CORPUSCULAR VOLUME 91.1 fL (80-100); MEAN PLATELET VOLUME 9.5 fL (9.2-13.0); MONOCYTES 8.3 %; MONOCYTES ABSOLUTE 0.74 10/3/uL (0.21-1.20); NEUTROPHILS 77.9 %; NEUTROPHILS ABSOLUTE 6.92 10/3/uL (2.02-8.40); PLATELET COUNT 170 10/3/uL (150-400); RBC DISTRIBUTION WIDTH 14.7 % (12.0-16.0); RED CELL COUNT 2.57 10/6/uL (4.0-5.6); WHITE BLOOD CELLS 8.9 10/3/uL (4.5-10.5)
[2016-08-20 05:37] LABS: MANUAL DIFF NO %
[2016-08-20 05:50] LABS: CALCIUM, SERUM 7.6 MG/DL (8.5-10.4); CHLORIDE, SERUM 110 MMOL/L (96-112); CO2 (CARBON DIOXIDE) 23 MMOL/L (24-34); GLUCOSE, SERUM 151 MG/DL (60-99); POTASSIUM, SERUM 4.5 MMOL/L (3.5-5.3); SODIUM, SERUM 144 MMOL/L (135-148)
[2016-08-20 05:52] LABS: BUN (BLOOD UREA NITROGEN) 65 MG/DL (6-23); CREATININE 3.72 MG/DL (0.55-1.02); GFR AFRICAN AMERICAN 14 ML/MIN (>=60); GFR NON AFRICAN AMERICAN 12 ML/MIN (>=60); PHOSPHORUS, SERUM 4.8 MG/DL (2.5-4.5)
[2016-08-21 03:58] LABS: BUN (BLOOD UREA NITROGEN) 63 MG/DL (6-23); CALCIUM, SERUM 8.4 MG/DL (8.5-10.4); CHLORIDE, SERUM 109 MMOL/L (96-112); CO2 (CARBON DIOXIDE) 23 MMOL/L (24-34); GLUCOSE, SERUM 163 MG/DL (60-99); POTASSIUM, SERUM 3.6 MMOL/L (3.5-5.3); SODIUM, SERUM 143 MMOL/L (135-148)
[2016-08-21 03:59] LABS: CREATININE 2.74 MG/DL (0.55-1.02); GFR AFRICAN AMERICAN 20 ML/MIN (>=60); GFR NON AFRICAN AMERICAN 17 ML/MIN (>=60); PHOSPHORUS, SERUM 3.1 MG/DL (2.5-4.5)
[2016-08-21 10:25] LABS: BASOPHILS 0.2 %; BASOPHILS ABSOLUTE 0.02 10/3/uL (0.0-0.16); EOSINOPHILS 0.2 %; EOSINOPHILS ABSOLUTE 0.02 10/3/uL (0.0-0.53); HEMOGLOBIN 8.6 g/dL (12.0-16.0); IMMATURE GRANULOCYTES 0.5 %; IMMATURE GRANULOCYTES ABSOLUTE 0.05 10/3/uL (0.0-0.11); LYMPHOCYTES 13.2 %; LYMPHOCYTES ABSOLUTE 1.36 10/3/uL (0.67-4.30); MEAN CORPUS HGB CONC 32.5 g/dL (32.0-36.0); MEAN CORPUSCULAR HEMOGLOB 29.3 pg (26.0-34.0); MEAN CORPUSCULAR VOLUME 90.1 fL (80-100); MEAN PLATELET VOLUME 10.1 fL (9.2-13.0); MONOCYTES 8.9 %; MONOCYTES ABSOLUTE 0.91 10/3/uL (0.21-1.20); NEUTROPHILS ABSOLUTE 7.92 10/3/uL (2.02-8.40); RBC DISTRIBUTION WIDTH 14.1 % (12.0-16.0); RED CELL COUNT 2.94 10/6/uL (4.0-5.6); WHITE BLOOD CELLS 10.3 10/3/uL (4.5-10.5)
[2016-08-21 10:28] LABS: HEMATOCRIT 26.5 % (36.0-48.0); MANUAL DIFF NO %; PLATELET COUNT 259 10/3/uL (150-400)
[2016-08-22 06:06] LABS: BASOPHILS 0.3 %; BASOPHILS ABSOLUTE 0.03 10/3/uL (0.0-0.16); EOSINOPHILS 1.7 %; EOSINOPHILS ABSOLUTE 0.19 10/3/uL (0.0-0.53); HEMATOCRIT 27.4 % (36.0-48.0); IMMATURE GRANULOCYTES 0.4 %; IMMATURE GRANULOCYTES ABSOLUTE 0.05 10/3/uL (0.0-0.11); LYMPHOCYTES 22.9 %; LYMPHOCYTES ABSOLUTE 2.56 10/3/uL (0.67-4.30); MEAN CORPUS HGB CONC 32.8 g/dL (32.0-36.0); MEAN CORPUSCULAR HEMOGLOB 29.3 pg (26.0-34.0); MEAN CORPUSCULAR VOLUME 89.3 fL (80-100); MEAN PLATELET VOLUME 9.5 fL (9.2-13.0); MONOCYTES 11.2 %; MONOCYTES ABSOLUTE 1.25 10/3/uL (0.21-1.20); NEUTROPHILS 63.5 %; RBC DISTRIBUTION WIDTH 14.2 % (12.0-16.0); RED CELL COUNT 3.07 10/6/uL (4.0-5.6); WHITE BLOOD CELLS 11.2 10/3/uL (4.5-10.5)
[2016-08-22 06:08] LABS: PLATELET COUNT 338 10/3/uL (150-400)
[2016-08-22 06:16] LABS: A/G RATIO 0.6 (0.7-1.9); ALBUMIN 2.8 G/DL (3.5-5.0); BUN (BLOOD UREA NITROGEN) 62 MG/DL (6-23); CHLORIDE, SERUM 108 MMOL/L (96-112); CO2 (CARBON DIOXIDE) 25 MMOL/L (24-34); CREATININE 2.53 MG/DL (0.55-1.02); GFR AFRICAN AMERICAN 22 ML/MIN (>=60); GFR NON AFRICAN AMERICAN 19 ML/MIN (>=60); GLOBULIN 4.4 G/DL (2.5-4.1); GLUCOSE, SERUM 134 MG/DL (60-99); PHOSPHORUS, SERUM 2.7 MG/DL (2.5-4.5); POTASSIUM, SERUM 3.9 MMOL/L (3.5-5.3); SGOT(AST) 39 U/L (5-40); SGPT(ALT) 32 U/L (5-65); SODIUM, SERUM 144 MMOL/L (135-148); TOTAL PROTEIN 7.2 G/DL (6.0-8.5)
[2016-08-22 06:17] LABS: ALKALINE PHOSPHATASE 200 U/L (45-117); TOTAL BILIRUBIN 1.5 MG/DL (0-1.2)
[2016-08-23 05:10] LABS: BASOPHILS 0.3 %; BASOPHILS ABSOLUTE 0.03 10/3/uL (0.0-0.16); EOSINOPHILS 2.6 %; EOSINOPHILS ABSOLUTE 0.24 10/3/uL (0.0-0.53); HEMATOCRIT 28.3 % (36.0-48.0); HEMOGLOBIN 9.3 g/dL (12.0-16.0); IMMATURE GRANULOCYTES 0.4 %; IMMATURE GRANULOCYTES ABSOLUTE 0.04 10/3/uL (0.0-0.11); LYMPHOCYTES 22.2 %; LYMPHOCYTES ABSOLUTE 2.04 10/3/uL (0.67-4.30); MANUAL DIFF NO %; MEAN CORPUS HGB CONC 32.9 g/dL (32.0-36.0); MEAN CORPUSCULAR HEMOGLOB 29.2 pg (26.0-34.0); MEAN CORPUSCULAR VOLUME 88.7 fL (80-100); MEAN PLATELET VOLUME 9.4 fL (9.2-13.0); MONOCYTES 11.7 %; MONOCYTES ABSOLUTE 1.07 10/3/uL (0.21-1.20); NEUTROPHILS 62.8 %; NEUTROPHILS ABSOLUTE 5.75 10/3/uL (2.02-8.40); PLATELET COUNT 333 10/3/uL (150-400); RBC DISTRIBUTION WIDTH 13.7 % (12.0-16.0); RED CELL COUNT 3.19 10/6/uL (4.0-5.6); WHITE BLOOD CELLS 9.2 10/3/uL (4.5-10.5)
[2016-08-23 05:34] LABS: ALBUMIN 2.9 G/DL (3.5-5.0); BUN (BLOOD UREA NITROGEN) 58 MG/DL (6-23); CALCIUM, SERUM 9.2 MG/DL (8.5-10.4); CHLORIDE, SERUM 107 MMOL/L (96-112); CO2 (CARBON DIOXIDE) 23 MMOL/L (24-34); CREATININE 2.21 MG/DL (0.55-1.02); GFR AFRICAN AMERICAN 26 ML/MIN (>=60); GFR NON AFRICAN AMERICAN 23 ML/MIN (>=60); GLUCOSE, SERUM 126 MG/DL (60-99); PHOSPHORUS, SERUM 3.1 MG/DL (2.5-4.5); POTASSIUM, SERUM 3.4 MMOL/L (3.5-5.3); SODIUM, SERUM 142 MMOL/L (135-148)
[2016-08-23] MEDS ORDERED: NORV5 PO (14:14)
[2016-08-23] MEDS ORDERED: COREG6 PO (14:15)
[2016-08-23] MEDS ORDERED: DSS PO (14:16)
[2016-08-23] MEDS ORDERED: FOLIC PO (14:16)
[2016-08-23] MEDS ORDERED: COMP10B PO (14:17)
[2016-08-23] MEDS ORDERED: ULTRAM50 PO (14:19)
== END 2016-08-23 15:41 | disposition home or self-care (01) | DRG 919 ==
LOC: ER 18:03 → CCU 19:35 → 1SO 08-21 14:07
PROVIDERS: Emergency Medicine; Internal Medicine; Internal Medicine Critical Care Medicine; Internal Medicine Nephrology; Physician Assistant; Registered Nurse
PROC: 02HV33Z Insertion of Infusion Device into Superior Vena Cava, Percutaneous Approach (ICD-10-PCS; principal; 2016-08-17)
PROC: 4A02X4A Measurement of Cardiac Electrical Activity, Guidance, External Approach (ICD-10-PCS; 2016-08-17)
PROC: 30233N1 Transfusion of Nonautologous Red Blood Cells into Peripheral Vein, Percutaneous Approach (ICD-10-PCS; 2016-08-17)
PROC: 5A09457 Assistance with Respiratory Ventilation, 24-96 Consecutive Hours, Continuous Positive Airway Pressure (ICD-10-PCS; 2016-08-19)
DX: K91.871 Postprocedural hematoma of a digestive system organ or structure following other procedure (principal); J96.02 Acute respiratory failure with hypercapnia; R57.9 Shock, unspecified; N17.0 Acute kidney failure with tubular necrosis; G93.40 Encephalopathy, unspecified; E87.2 Acidosis; I95.9 Hypotension, unspecified; J96.01 Acute respiratory failure with hypoxia; N18.4 Chronic kidney disease, stage 4 (severe); D62 Acute posthemorrhagic anemia; E11.22 Type 2 diabetes mellitus with diabetic chronic kidney disease; Y83.8 Other surgical procedures as the cause of abnormal reaction of the patient, or of later complication, without mention of misadventure at the time of the procedure; E03.9 Hypothyroidism, unspecified; E78.5 Hyperlipidemia, unspecified; J45.909 Unspecified asthma, uncomplicated; F32.9 Major depressive disorder, single episode, unspecified; I12.9 Hypertensive chronic kidney disease with stage 1 through stage 4 chronic kidney disease, or unspecified chronic kidney disease; E11.65 Type 2 diabetes mellitus with hyperglycemia; E11.42 Type 2 diabetes mellitus with diabetic polyneuropathy; E87.6 Hypokalemia; E66.9 Obesity, unspecified; Z68.38 Body mass index [BMI] 38.0-38.9, adult; K74.5 Biliary cirrhosis, unspecified; K21.9 Gastro-esophageal reflux disease without esophagitis; J44.9 Chronic obstructive pulmonary disease, unspecified; E87.5 Hyperkalemia; Z87.891 Personal history of nicotine dependence; Z91.14 Patient's other noncompliance with medication regimen; Z79.891 Long term (current) use of opiate analgesic; Z79.82 Long term (current) use of aspirin; Z79.84 Long term (current) use of oral hypoglycemic drugs; Z79.899 Other long term (current) drug therapy; Z88.0 Allergy status to penicillin; Z88.5 Allergy status to narcotic agent; Z88.1 Allergy status to other antibiotic agents
CPT/HCPCS: 36415; 36569; 36600; 71010; 74176; 75726; 80048; 80053; 80069; 80076; 81001; 82140; 82330; 82550; 82553; 82805; 82962; 83036; 83605; 83735; 84100; 84443; 84484; 85025; 85610; 85730; 86850; 86900; 86901; 86920; 87641; 93005; 94640; 94660; 96374; 97110-GP; 97161-GP; 97530-GP; 99291; 99292; A9270-GY; C1751; G8978-CK-GP; G8979-CH-GP; J0360; J1170; J2405; P9016; P9047